=== PATIENT | female | born 1965 | race African-American/Black ===

== ENCOUNTER 2016-08-10 02:23 | Emergency (ER) | payer OTHER ==
[~2016-08-10] VITALS: Ht 170.2 cm; Wt 82.0 kg
[~2016-08-10 02:23] MED LIST: DICY1TAB26 PO; LORTA5 PO; Z.0.NO CURRENT MEDS
[2016-08-10 02:26] VITALS: BP 213/108; PULSE 73; RESP 16; TEMP 98; O2SAT 98
[2016-08-10 03:10] LABS: AUTOMATED NEUTROPHIL # 2.9 TH/MM3 (1.8-7.7); BASOPHIL % 0.3 % (0.0-2.0); EOSINOPHIL # 0.1 TH/MM3 (0-0.4); EOSINOPHIL % 1.4 % (0.0-4.0); HEMATOCRIT 37.1 % (35.0-46.0); HEMO FLAGS DIFF FINAL; LYMPH % 34.4 % (9.0-44.0); LYMPHOCYTE # 1.8 TH/MM3 (1.0-4.8); MEAN CELL VOLUME 77.3 FL (80.0-100.0); MEAN CORPUSCULAR HEMOGLOBIN 25.2 PG (27.0-34.0); MEAN CORPUSCULAR HGB CONC 32.6 % (32.0-36.0); MONO % 8.1 % (0.0-8.0); NEUT % 55.8 % (16.0-70.0); PLATELET COUNT 214 TH/MM3 (150-450); WHITE BLOOD COUNT 5.1 TH/MM3 (4.0-11.0)
[2016-08-10 03:16] LABS: BLOOD, URINE NEG (NEG); COMMENT (UR) CULT NOT INDICATED; CULTURE IF INDICATED CULT NOT INDICATED; GLUCOSE,URINE NEG (NEG); KETONE, URINE NEG (NEG); MUCUS URINE FEW /lpf (OCC); NITRITE,URINE NEG (NEG); SQUAMOUS EPITHELIAL CELL URINE 1 /hpf (0-5); URINE COLOR LIGHT-YELLOW (YELLW/STRAW)
[2016-08-10 03:35] LABS: ALT (GPT) 19 U/L (10-53); ANION GAP 7 MEQ/L (5-15); AST (GOT) 18 U/L (15-37); BICARBONATE 30.2 MEQ/L (21.0-32.0); BLOOD UREA NITROGEN 12 MG/DL (7-18); CHLORIDE 104 MEQ/L (98-107); GLOMERULAR FILTRATION RATE 67 ML/MIN (>89); POTASSIUM 3.1 MEQ/L (3.5-5.1); SODIUM (NA) 141 MEQ/L (136-145)
[2016-08-10 03:38] LABS: ALKALINE PHOSPHATASE 99 U/L (45-117); TOTAL BILIRUBIN ADULT 0.3 MG/DL (0.2-1.0)
[2016-08-10] MEDS ORDERED: SODIUM CHLOR 0.9% 1000 ML INJ 1,000 ML IV SCH (04:32)
[2016-08-10] MEDS ORDERED: SODIUM CHLORIDE 0.9% FLUSH 5 ML FLUSH IVF PRN (04:45)
[2016-08-10] MEDS ORDERED: HYDROmorphone HCL PF 1 MG/ML VIAL IVS ONE (04:45)
[2016-08-10] MEDS ORDERED: LIDOCAINE VISCOUS 2% SOLN 15 ML UDC PO ONE (04:45)
[2016-08-10] MEDS ORDERED: ALUMINUM/MAGNESIUM/SIMETH 30 ML CUP PO ONE (04:45)
[2016-08-10 04:53] VITALS: BP 163/80; PULSE 75; RESP 16; O2SAT 96
[2016-08-10] MEDS ORDERED: IOHEXOL 350 MG/ML 100 ML BTL (for RAD DIAG) IV ONE (05:14)
--- NOTE | 2016-08-10 05:33 | RADRPT ---
EXAM DATE/TIME: 08/10/2016 05:10 [place] COMPARISON: CT ABDOMEN & PELVIS W CONTRAST, August 10, 2013, 21:40. INDICATIONS : Abdominal pain along with vomiting for one day. IV CONTRAST: 96 cc Omnipaque 350 (iohexol) IV ORAL CONTRAST: No oral contrast ingested. RADIATION DOSE: 15.14 CTDIvol (mGy) MEDICAL HISTORY : None SURGICAL HISTORY : None. ENCOUNTER: Initial ACUITY: 1 day PAIN SCALE: 0/10 LOCATION: abdomen TECHNIQUE: Volumetric scanning of the abdomen and pelvis was performed. Using automated exposure control and ad justment of the mA and/or kV according to patient size, radiation dose was kept as low as reasonably achievable to obtain optimal diagnostic quality images. FINDINGS: LOWER LUNGS: The visualized lower lungs are clear. LIVER: Homogeneous density without lesion. There is no dilation of the biliary tree. Small stones in gallbl adder. No thickening of the gallbladder wall. No inflammatory changes are seen. The gallbladder is mi ldly distended.. SPLEEN: Normal size without lesion. PANCREAS: Within normal limits. KIDNEYS: Normal in size and shape. There is no mass, stone or hydronephrosis. ADRENAL GLANDS: Within normal limits. VASCULAR: There is no aortic aneurysm. BOWEL/MESENTERY: The stomach, small bowel, and colon demonstrate no acute abnormality. There is no free intraperitone al air or fluid. The appendix is unremarkable. No inflammatory changes are demonstrated. There contin ues to be a well-defined homogeneous cystic type mass adjacent to the rectum measuring approximately 3.8 cm. This was present on the prior study from 2013 and may be very slightly increased in size comp ared to the prior study. Otherwise there is no significant change in the appearance of this finding. ABDOMINAL WALL: Within normal limits. RETROPERITONEUM: There is no lymphadenopathy. BLADDER: No wall thickening or mass. REPRODUCTIVE: Within normal limits. INGUINAL: There is no lymphadenopathy or hernia. MUSCULOSKELETAL: Within normal limits for patient age. CONCLUSION: 1. Few tiny stones in the gallbladder. No biliary tract obstruction. The gallbladder is mildly disten ded. No adjacent inflammatory changes are demonstrated. 2. There continues to be a cystic well-defined type mass adjacent to the rectum measuring approximate ly 3.8 cm. This was present on the prior exam of 08/10/2013 and may be slightly increased in size, oth erwise no change. 3. The rest of the exam is also stable compared to the prior study. Librado Paredes MD on August 10, 2016 at 5:25 Board Certified Radiologist. This report was verified electronically.
[2016-08-10] MEDS ORDERED: POTASSIUM CHLORIDE 20 MEQ CONTROLLED RELEASE TAB PO ONE (05:45)
[2016-08-10 06:30] VITALS: BP 132/78; PULSE 92; RESP 18; O2SAT 96
--- NOTE | 2016-08-10 06:36 | PD ---
HPI Chief Complaint: Abdominal Pain Time Seen by Provider: 03:54 Travel History International Travel<30 days: No Contact w/Intl Traveler<30days: No Traveled to known affect area: No History of Present Illness HPI 51-year-old female arrives with epigastric abdominal pain x about 1 day. Patient has had vomiting, nonbloody. No diarrhea. Occasional nausea. No fever. Symptoms feel similar to prior episodes of GERD. Today is quite a bit more severe. Appetite has been decreased. She denies alcohol. PFSH Past Medical History Anxiety: No Depression: No Heart Rhythm Problems: No Cancer: No Cardiovascular Problems: No Chemotherapy: No Chest Pain: No Congestive Heart Failure: No Cerebrovascular Accident: No Diabetes: No Diminished Hearing: No Endocrine: No GERD: No Glaucoma: No Genitourinary: No Headaches: No Hepatitis: No Hiatal Hernia: No Hypertension: Yes Immune Disorder: No Kidney Stones: No Musculoskeletal: No Neurologic: No Psychiatric: No Reproductive: No Respiratory: No Migraines: No Myocardial Infarction: No Radiation Therapy: No Renal Failure: No Seizures: No Sleep Apnea: No Thyroid Disease: No Ulcer: No ?: Not Tubal Ligation: Yes Past Surgical History Abdominal Surgery: No AICD: No Appendectomy: No Arteriovenous Shunt: No Cardiac Surgery: No Ear Surgery: No Endocrine Surgery: No Eye Surgery: No Genitourinary Surgery: No Gynecologic Surgery: Yes Hysterectomy: Yes (PARTIAL HYSTERECTOMY) Insulin Pump: No Joint Replacement: No Oral Surgery: No Pacemaker: No Thoracic Surgery: No Other Surgery: Yes (COLONOSCOPY) Social History Alcohol Use: No Tobacco Use: No Substance Use: No Allergies-Medications (Allergen,Severity, Reaction): Coded Allergies: No Known Allergies (Verified , 08/10/16) Reported Meds & Prescriptions Reported Meds & Active Scripts Active Maalox Advanced Maximum Strength Liq (Lnmppmym-Cnkrhsezf-Exlchjerqxf Liq) 400- 400-40 Mg/5 Ml Susp 10-20 Ml PO QID PRN 7 Days Take between meals or as directed. Shake well. Maximum 60 ml/24 hrs. Lortab (Hydrocodone-Acetaminophen) 5-325 Mg Tab 1-2 Tab PO Q6H PRN Review of Systems Except as stated in HPI: all other systems reviewed are Neg Physical Exam Narrative GENERAL: Well-nourished well-developed 51-year-old female in moderate distress SKIN: Warm and dry. HEAD: Atraumatic. Normocephalic. EYES: Pupils equal and round. No scleral icterus. No injection or drainage. ENT: No nasal bleeding or discharge. Mucous membranes pink and moist. NECK: Trachea midline. No JVD. CARDIOVASCULAR: Regular rate and rhythm. No murmur appreciated. RESPIRATORY: No accessory muscle use. Clear to auscultation. Breath sounds equal bilaterally. GASTROINTESTINAL: Soft. Tender to palpation epigastrium. Negative Waterman sign. No tenderness at McBurney's point MUSCULOSKELETAL: No obvious deformities. No clubbing. No cyanosis. No edema. NEUROLOGICAL: Awake and alert. No obvious cranial nerve deficits. Motor grossly within normal limits. Normal speech. PSYCHIATRIC: Appropriate mood and affect; insight and judgment normal. Data Data Last Documented VS Vital Signs Date Time Temp Pulse Resp B/P Pulse Ox O2 Delivery O2 Flow Rate FiO2 08/10/16 06:30 92 18 132/78 96 Room Air 08/10/16 02:26 98.0 Orders Complete Blood Count With Diff (08/10/16 02:30) Comprehensive Metabolic Panel (08/10/16 02:30) Urinalysis - C+S If Indicated (08/10/16 02:30) Lipase (08/10/16 02:42) Ct Abd/Pel W Iv Contrast(Rout) (08/10/16 04:32) Iv Access Insert/Monitor (08/10/16 04:32) Ecg Monitoring (08/10/16 04:32) Oximetry (08/10/16 04:32) Sodium Chlor 0.9% 1000 Ml Inj (Ns 1000 M (08/10/16 04:32) Sodium Chloride 0.9% Flush (Ns Flush) (08/10/16 04:45) Hydromorphone Pf Inj (Dilaudid Pf Inj) (08/10/16 04:45) Al-Mag Hy-Si 40-40-4 Mg/Ml Liq (Mag-Al P (08/10/16 04:45) Lidocaine 2% Viscous (Xylocaine 2% Visco (08/10/16 04:45) Iohexol 350 Inj (Omnipaque 350 Inj) (08/10/16 05:14) Potassium Chloride (Kcl) (08/10/16 05:45) Labs Laboratory Tests Test 08/10/16 08/10/16 02:40 02:42 Urine Color LIGHT-YELLOW Urine Turbidity CLEAR Urine pH 8.0 Urine Specific [place] 1.010 Urine Protein 30 mg/dL Urine Glucose (UA) NEG mg/dL Urine Ketones NEG mg/dL Urine Occult Blood NEG Urine Nitrite NEG Urine Bilirubin NEG Urine Urobilinogen LESS THAN 2.0 MG/DL Urine Leukocyte Esterase NEG Urine RBC 2 /hpf Urine WBC 2 /hpf Urine Squamous Epithelial 1 /hpf Cells Urine Mucus FEW /lpf Microscopic Urinalysis Comment CULT NOT INDICATED White Blood Count 5.1 TH/MM3 Red Blood Count 4.80 MIL/MM3 Hemoglobin 12.1 GM/DL Hematocrit 37.1 % Mean Corpuscular Volume 77.3 FL Mean Corpuscular Hemoglobin 25.2 PG Mean Corpuscular Hemoglobin 32.6 % Concent Red Cell Distribution Width 16.0 % Platelet Count 214 TH/MM3 Mean Platelet Volume 9.5 FL Neutrophils (%) (Auto) 55.8 % Lymphocytes (%) (Auto) 34.4 % Monocytes (%) (Auto) 8.1 % Eosinophils (%) (Auto) 1.4 % Basophils (%) (Auto) 0.3 % Neutrophils # (Auto) 2.9 TH/MM3 Lymphocytes # (Auto) 1.8 TH/MM3 Monocytes # (Auto) 0.4 TH/MM3 Eosinophils # (Auto) 0.1 TH/MM3 Basophils # (Auto) 0.0 TH/MM3 CBC Comment DIFF FINAL Differential Comment Sodium Level 141 MEQ/L Potassium Level 3.1 MEQ/L Chloride Level 104 MEQ/L Carbon Dioxide Level 30.2 MEQ/L Anion Gap 7 MEQ/L Blood Urea Nitrogen 12 MG/DL Creatinine 1.05 MG/DL Estimat Glomerular Filtration 67 ML/MIN Rate Random Glucose 109 MG/DL Calcium Level 8.9 MG/DL Total Bilirubin 0.3 MG/DL Aspartate Amino Transf 18 U/L (AST/SGOT) Alanine Aminotransferase 19 U/L (ALT/SGPT) Alkaline Phosphatase 99 U/L Total Protein 8.2 GM/DL Albumin 4.0 GM/DL Lipase 166 U/L [facility] Medical Decision Making Medical Screen Exam Complete: Yes Emergency Medical Condition: Yes Differential Diagnosis Constipation, Gastritis, Acute Cholecystitis, Biliary Colic, Pancreatitis, LARRY , Hepatitis, Bowel Obstruction, Cystitis, Mesenteric Ischemia, AAA, Appendicitis , Renal Stone/Hydronephrosis, GERD, perforated viscous Narrative Course CBC & BMP Diagram 08/10/16 02:42 LFTs normal Lipase normal UA no UTI Last 24 hours Impressions Abdomen/Pelvis CT 08/10/16 0432 Signed Impressions: Service Date/Time: Wednesday, August 10, 2016 05:10 - CONCLUSION: 1. Few tiny stones in the gallbladder. No biliary tract obstruction. The gallbladder is mildly distended. No adjacent inflammatory changes are demonstrated. 2. There continues to be a cystic well-defined type mass adjacent to the rectum measuring approximately 3.8 cm. This was present on the prior exam of 08/10/2013 and may be slightly increased in size, otherwise no change. 3. The rest of the exam is also stable compared to the prior study. Librado Paredes MD The patient is resting comfortably and feels better, is alert and in no distress. The patients results and examination findings were discussed. The repeat examination is unremarkable and benign. The history, exam, diagnostic testing, and current condition do not suggest any significant pathology to warrant further testing, continued ED treatment, admission, or surgical evaluation at this point. The vital signs have been stable. The patient does not have uncontrollable pain, intractable vomiting, or other significant symptoms. The patient's condition is stable and appropriate for discharge. The patient will pursue further outpatient evaluation with a primary care physician or other designated or consulting physician as indicated in the discharge instructions. The patient expressed understanding and was agreeable with this plan. Patient reeducated regarding her perirectal/pelvic cyst. Referral provided. Necessity of prompt follow-up with PMD discussed. Patient states she'll follow- up with Dr. Vergara expeditiously Diagnosis Primary Impression: Abdominal pain Qualified Code: R10.13 - Epigastric pain Additional Impression: Cyst near tailbone Referrals: Nain Boswell MD 2 days Additional Instructions: You have a choice when it comes to health care, and we are glad that you chose [facility]. Hopefully, we have met your expectations on today's visit. You are welcome to return to [facility] at any time, as we are committed to meeting the health care needs of our community. Med/Other Pt SpecificInfo: Prescription(s) given Scripts Bulidvbc-Ikxxjbice-Mvivezqanwc Liq (Maalox Advanced Maximum Strength Liq)400-400 -40 Mg/5 Ml [id number] Ml PO QID PRN (INDIGESTION OR UPSET STOMACH) 7 Days Ref 0 Take between meals or as directed. Shake well. Maximum 60 ml/24 hrs. Prov:Alex Cummings MD 08/10/16 Hydrocodone-Acetaminophen (Lortab)5-325 Mg Tab1-2 Tab PO Q6H PRN (PAIN SCALE 6 TO 10) #20 TAB Ref 0 Prov:Alex Cummings MD 08/10/16 Disposition: 01 DISCHARGE HOME Condition: Stable Alex Cummings MD Aug 10, 2016 06:36
[2016-08-10] MEDS ORDERED: MAALSUS18 PO (06:48)
[2016-08-10] MEDS ORDERED: HYDR-3533 PO (06:48)
== END 2016-08-10 07:04 | disposition home or self-care (01) ==
LOC: NEPC 02:23
DX: R10.13 Epigastric pain (principal); N94.89 Other specified conditions associated with female genital organs and menstrual cycle; R11.2 Nausea with vomiting, unspecified; I10 Essential (primary) hypertension
CPT/HCPCS: 74177; 80053; 81001; 83690; 85025; 96361; 96374; 99284; J1170; J7030; Q9967